=== PATIENT | female | born 2000 | race Hispanic/Latino ===

== ENCOUNTER 2019-11-16 10:48 | Emergency (ER) | payer BC, OTHER ==
[2019-11-17 12:12] LABS: SARS-CoV-2 MS2 Positive; SARS-CoV-2 N Gene Negative; SARS-CoV-2 S Gene Negative; SARS-CoV-2 orf1ab Negative
== END 2019-11-16 11:09 | disposition home or self-care (01) ==
LOC: ERS 10:48
DX: Z20.828 Contact with and (suspected) exposure to other viral communicable diseases (principal)
CPT/HCPCS: 87635; 99283; U0003